=== PATIENT | female | born 1980 | race Two or more races ===

== ENCOUNTER 2016-10-29 18:24 | Emergency (ER) | payer MEDICAID ==
[~2016-10-29] VITALS: Ht 165.1 cm; Wt 79.5 kg
[2016-10-29 18:34] VITALS: BP 109/74
[2016-10-29] MEDS ORDERED: KETOROLAC 60MG/2ML VIAL IM ONE (19:15)
[2016-10-29] MEDS ORDERED: CYCLOBENZAPRINE 10MG TABLET PO ONE (19:15)
== END 2016-10-29 20:16 | disposition home or self-care (01) ==
LOC: ER 18:25
DX: S16.1XXA Strain of muscle, fascia and tendon at neck level, initial encounter (principal); M25.512 Pain in left shoulder; M25.511 Pain in right shoulder; R06.02 Shortness of breath; Z88.0 Allergy status to penicillin; Z90.49 Acquired absence of other specified parts of digestive tract; Z95.5 Presence of coronary angioplasty implant and graft; V49.9XXA Car occupant (driver) (passenger) injured in unspecified traffic accident, initial encounter; Y93.89 Activity, other specified; Y92.89 Other specified places as the place of occurrence of the external cause; Y99.8 Other external cause status
CPT/HCPCS: 71010; 96372; 99283; J1885; Z7610